=== PATIENT | female | born 1995 | race Caucasian/White ===

== ENCOUNTER 2017-04-03 12:52 | Emergency (ER) | payer OTHER, SELFPAY ==
[~2017-04-03] VITALS: Ht 167.6 cm; Wt 82.2 kg
[2017-04-03] MEDS ORDERED: NYST10PW (13:07)
[2017-04-03] MEDS ORDERED: OXAY1TAB (13:07)
[2017-04-03] MEDS ORDERED: DOCQ100C (13:07)
[2017-04-03] MEDS ORDERED: CALC1TAB9 (13:07)
[2017-04-03] MEDS ORDERED: VITA500T (13:07)
[2017-04-03] MEDS ORDERED: ENOX30IN3 (13:07)
[2017-04-03] MEDS ORDERED: CYCL10TA (13:07)
[2017-04-03] MEDS ORDERED: GABA-282 (13:07)
[2017-04-03] MEDS ORDERED: VITA-122 (13:07)
[2017-04-03] MEDS ORDERED: IBUP-1022 PO (13:07)
[2017-04-03 15:34] LABS: BASO % 0.2 % (0.0-1.0); EOS # 0.3 K/mm3 (0.0-0.50); EOS % 2.9 % (0.0-3.0); LARGE UNSTAINED CELL # 0.2 K/mm3 (0.0-0.4); LARGE UNSTAINED CELL % 2.5 % (0.0-4.0); LYMPH # 2.1 K/mm3 (1.5-6.5); MEAN CORPUSCULAR HEMOGLOBIN 28.3 pg (27.0-33.0); MEAN CORPUSCULAR HGB CONC 31.4 g/dl (32.0-36.5); MEAN CORPUSCULAR VOLUME 90.1 fl (80.0-96.0); MONO # 0.6 K/mm3 (0.0-0.8); MONO % 6.2 % (0.0-5.0); NEUTROPHILS # 6.5 K/mm3 (1.8-7.7); NEUTROPHILS % 68.1 % (36.0-66.0); PLATELET COUNT, AUTOMATED 498 k/mm3 (150-450); RED CELL DISTRIBUTION WIDTH 15.3 % (11.5-14.5); WHITE BLOOD COUNT 9.5 K/mm3 (4.0-10.0)
[2017-04-03 15:52] LABS: ANION GAP 9 MEQ/L (8-16); BLOOD UREA NITROGEN 9 MG/DL (7-18); CALCIUM LEVEL 9.2 MG/DL (8.5-10.1); CARBON DIOXIDE LEVEL 26 MEQ/L (21-32); CHLORIDE LEVEL 103 MEQ/L (98-107); CREATININE FOR GFR 0.48 MG/DL (0.55-1.02); GLOMERULAR FILTRATION RATE > 60.0 (>60); GLUCOSE, FASTING 87 MG/DL (70-105); POTASSIUM SERUM 4.4 MEQ/L (3.5-5.1); SODIUM LEVEL 138 MEQ/L (136-145)
[2017-04-03 15:55] LABS: ERYTHROCYTE SEDIMENTATION RATE 51 mm/hr (0-20)
[2017-04-03] MEDS ORDERED: ISOVUE-370 76% 100ML VIAL (Q9967) As Ordered ONE (16:10)
[2017-04-03] MEDS: HYDROmorphone HCL 1 MG/ML SYRINGE (J1170) IV PRN ×2 (16:18→17:04)
[2017-04-03 17:03] VITALS: BP 124/65
--- NOTE | 2017-04-03 17:24 | REP ---
CT ABDOMEN AND PELVIS WITH CONTRAST: HISTORY: Wound drainage. CONTRAST: Isovue 370, 75 mL. There is no perfusion in the superior medial aspect of the right kidney consistent with ischemia. There are small areas of irregularity in the cortex of the right kidney consistent with scarring. The liver, gallbladder, pancreas, spleen, adrenal glands and left kidney are normal in appearance. Surgical clips are present in the mid left anterior abdomen. A small amount of edema is present in the subcutaneous tissue in the left mid anterior abdomen as well as in the mid anterior abdominal cavity. There is atrophy of the left rectus abdominis muscle. The visualized lungs are clear. IMPRESSION: 1. There is no perfusion in the superior medial aspect of the right kidney consistent with ischemic. There are small areas of scarring in the right kidney. 2. There is a small amount of edema in the mid anterior abdominal subcutaneous tissue as well as in the mid anterior abdominal cavity. Surgical clips are present in the mid left anterior subcutaneous tissue. CT PELVIS: There is moderate distention of the urinary bladder. The uterus is normal in appearance. There is no mass, adenopathy or free fluid. A small amount of edema is present in the mid left anterior subcutaneous tissue and mid left anterior abdominal cavity. IMPRESSION: 1. There is moderate distention of the urinary bladder. 2. There is a small amount of edema in the mid left anterior subcutaneous tissue and mid anterior abdominal cavity. Signed by Adrian Nieto MD 04/03/2017 06:53 P
[2017-04-03] MEDS ORDERED: HYDROmorphone HCL 1 MG/ML SYRINGE (J1170) IV PRN (17:30)
[2017-04-03] MEDS ORDERED: DOXY100C37 PO (17:44)
--- NOTE | 2017-04-03 17:50 | REP ---
CT RIGHT LOWER EXTREMITY WITH CONTRAST: HISTORY: Purulent drainage. An intramedullary sheila with graft material is present. There is a fracture of the femur at the junction of the proximal and middle thirds. A 3.4 cm area of decreased attenuation is present in the right posterolateral musculature. This most likely represents hematoma or possibly abscess. A wedge shaped area of fluid density is present in the mid anterior subcutaneous tissue representing edema and or fluid. There is enlargement of the mid anterior musculature consistent with edema and or hematoma. Stranding is present in the overlying subcutaneous tissue consistent with edema. IMPRESSION: 1. There is a fracture of the femur at the junction of the proximal and middle thirds. An intramedullary sheila is present. 2. There is enlargement of mid anterior musculature consistent with edema and or hematoma. A wedge shaped area of increased density consistent with edema or fluid is present in the mid anterior subcutaneous tissue. 3. There is a 3.4 cm area of decreased attenuation in the right posterolateral musculature representing a hematoma or fluid. Signed by Adrian Nieto MD 04/03/2017 06:54 P
== END 2017-04-03 18:32 | disposition home or self-care (01) ==
LOC: M ED 12:52
DX: Z51.89 Encounter for other specified aftercare (principal); Z87.891 Personal history of nicotine dependence; Z79.01 Long term (current) use of anticoagulants
CPT/HCPCS: 73701; 74177; 80048; 85025; 85652; 86140; 87040; 96374; 96376; 99283; J1170; Q9967

== ENCOUNTER → 2017-06-06 | Outpatient (CLI) | payer OTHER ==
[~2017-06-06] MED LIST: CALC1TAB9; CYCL10TA; DOCQ100C; DOXY100C37 PO; ENOX30IN3; GABA-282; IBUP-1022 PO; NYST10PW; OXAY1TAB; VITA-122; VITA500T
--- NOTE | 2017-06-06 14:24 | REP ---
ULTRASOUND ABDOMINAL WALL: Real-time sonographic evaluation of left abdominal wall performed at the site of wound drainage. Patient states that there has been resection of rectus abdominis muscle in March 2017. In this region of the left abdominal wall there is a complex fluid collection seen with a tract to the skin. This complex fluid collection measures 9.6 x 3.1 x 2.2 cm. This could represent a complex seroma or abscess. There are multiple internal septations within the complex fluid collection. Signed by Brad Lee MD 06/06/2017 02:46 P
== END ==
LOC: M RAD 13:16
PROVIDERS: ATTEND Family Medicine
DX: T81.89XD Other complications of procedures, not elsewhere classified, subsequent encounter (principal)

== ENCOUNTER 2017-06-12 07:21 | Outpatient (RCR) | payer OTHER | END 2017-07-03 | LOC: M PT 07:21 | DX: Z51.89 Encounter for other specified aftercare (principal); V89.2XXA Person injured in unspecified motor-vehicle accident, traffic, initial encounter; X58.XXXA Exposure to other specified factors, initial encounter; Y93.9 Activity, unspecified; Y92.9 Unspecified place or not applicable; Y99.8 Other external cause status | CPT/HCPCS: 97163 ==

== ENCOUNTER → 2018-04-25 | Outpatient (CLI) | payer OTHER | LOC: M RAD 09:28 | DX: S72.40 Unspecified fracture of lower end of femur (principal); X58.XXXD Exposure to other specified factors, subsequent encounter; Y92.9 Unspecified place or not applicable | CPT/HCPCS: 73552 ==

== ENCOUNTER 2018-05-15 21:05 | Inpatient (IN) | payer MEDICAID, OTHER ==
[2018-05-15] MEDS: LIDOCAINE 1% MDV 20ML VIAL SC (22:00)
[2018-05-15] MEDS: LORazepam 1 MG TAB PO (22:43)
[2018-05-15] MEDS: NICOTINE 21MG/24HR 1 EA TRANSDERMAL TD (22:45)
[2018-05-15 22:47] LABS: HEMATOCRIT 43.3 % (36.0-47.0); HEMOGLOBIN 14.3 g/dl (12.0-15.5); MEAN CORPUSCULAR HEMOGLOBIN 27.7 pg (27.0-33.0); MEAN CORPUSCULAR VOLUME 83.9 fl (80.0-96.0); PLATELET COUNT, AUTOMATED 414 10^3/uL (150-450); RED BLOOD COUNT 5.16 10^6/uL (4.00-5.40); RED CELL DISTRIBUTION WIDTH 15.2 % (11.5-14.5); WHITE BLOOD COUNT 11.8 10^3/uL (4.0-10.0)
[2018-05-15 22:54] LABS: CONTROL LINE HCG INT CTR LINE PRESENT; HCG, SERUM QUALITATIVE NEGATIVE (NEGATIVE)
[2018-05-15] MEDS: ADACEL/BOOSTRIX VACCINE (DIPHTH/PERTUSS/ACELL/TETANUS)0.5ML SYR (90715) IM (23:00)
[2018-05-15 23:12] LABS: ACETAMINOPHEN LEVEL < 2.0 UG/ML (10.0-30.0); ALBUMIN/GLOBULIN RATIO 1.03 (1.00-1.93); ALKALINE PHOSPHATASE 112 U/L (45-117); ALT/SGPT 108 U/L (12-78); ANION GAP 11 MEQ/L (8-16); AST/SGOT 51 U/L (7-37); BILIRUBIN,DIRECT < 0.1 MG/DL (0.0-0.2); BILIRUBIN,TOTAL 0.2 MG/DL (0.2-1.0); BLOOD UREA NITROGEN 8 MG/DL (7-18); CALCIUM LEVEL 8.8 MG/DL (8.5-10.1); CARBON DIOXIDE LEVEL 20 MEQ/L (21-32); CHLORIDE LEVEL 111 MEQ/L (98-107); CREATININE FOR GFR 0.61 MG/DL (0.55-1.30); ETHYL ALCOHOL (ETHANOL) 0.158 % (0.000-0.010); GLOMERULAR FILTRATION RATE > 60.0 (>60); GLUCOSE, FASTING 90 MG/DL (70-100); POTASSIUM SERUM 4.1 MEQ/L (3.5-5.1); SALICYLATE LEVEL 3.1 MG/DL (5.0-30.0); SODIUM LEVEL 142 MEQ/L (136-145); TOTAL PROTEIN 7.9 GM/DL (6.4-8.2)
[2018-05-15 23:31] LABS: AMPHETAMINES LEVEL URINE NEGATIVE (NEGATIVE); BARBITURATES URINE NEGATIVE (NEGATIVE); BENZODIAZEPINES URINE NEGATIVE (NEGATIVE); CANNABINOIDS URINE POSITIVE (NEGATIVE); COCAINE METABOLITE URINE NEGATIVE (NEGATIVE); METHADONE URINE NEGATIVE (NEGATIVE); OPIATES URINE NEGATIVE (NEGATIVE); PHENCYCLIDINE URINE NEGATIVE (NEGATIVE)
[2018-05-16] MEDS: THIAMINE 100 MG TAB PO ×2 (01:53→10:11)
[2018-05-16] MEDS ORDERED: ACETAMINOPHEN TAB 650MG DOSE (2X325MG) PO (02:00)
[2018-05-16] MEDS ORDERED: MOM 30ML SUSPENSION UDC PO (02:00)
[2018-05-16] MEDS ORDERED: MAALOX 30 ML SUSP *UDC PO (02:00)
[2018-05-16] MEDS ORDERED: LORazepam 2 MG TAB PO (02:00)
[2018-05-16] MEDS ORDERED: hydrOXYzine 50 MG TAB PO (03:45)
[2018-05-16] MEDS: MELOXICAM (MOBIC) 7.5 MG TAB PO (10:10)
[2018-05-16] MEDS: NICOTINE 21MG/24HR 1 EA TRANSDERMAL TD (10:10)
[2018-05-16] MEDS: FOLIC ACID 1 MG TAB PO (10:11)
[2018-05-16] MEDS: MULTIVITAMINS/MINERALS THERAP 1 TAB PO (10:11)
[2018-05-16] MEDS: VENLAFAXINE 25 MG TAB PO (10:11)
[2018-05-16] MEDS: GABAPENTIN 300 MG CAP PO ×2 (10:11→15:12)
[2018-05-16] MEDS: tiZANidine 4 MG TAB PO (15:11)
== END 2018-05-16 15:30 | disposition home or self-care (01) | DRG 775 ==
LOC: M ED INP 05-16 01:46 → M PSY 05-16 02:33 → M ED 21:05
DX: F10.14 Alcohol abuse with alcohol-induced mood disorder (principal); Z62.810 Personal history of physical and sexual abuse in childhood; Z91.5 Personal history of self-harm; F17.210 Nicotine dependence, cigarettes, uncomplicated; Z81.3 Family history of other psychoactive substance abuse and dependence; G89.29 Other chronic pain; Z87.81 Personal history of (healed) traumatic fracture; M87.26 Osteonecrosis due to previous trauma, tibia and fibula

== ENCOUNTER → 2018-06-20 | Outpatient (REF) | payer OTHER | LOC: M SFHCADAM 15:33 | DX: R30.0 Dysuria (principal) | CPT/HCPCS: 87086 ==

== ENCOUNTER 2018-07-06 21:57 | Emergency (ER) | payer OTHER ==
[2018-07-06] MEDS: BACLOFEN 10 MG TAB PO (22:39)
[2018-07-06] MEDS: PERCOCET 5MG/325MG TAB PO (22:40)
[2018-07-06] MEDS: OXYCODONE/APAP 5MG/325MG(BULK FOR ED) 1 TABLET PO (23:17)
== END 2018-07-06 23:19 | disposition home or self-care (01) ==
LOC: M ED 21:57
DX: S39.022A Laceration of muscle, fascia and tendon of lower back, initial encounter (principal); X58.XXXA Exposure to other specified factors, initial encounter; Y92.89 Other specified places as the place of occurrence of the external cause; F33.9 Major depressive disorder, recurrent, unspecified; F41.9 Anxiety disorder, unspecified; Z87.820 Personal history of traumatic brain injury; Z79.899 Other long term (current) drug therapy; Z88.0 Allergy status to penicillin; F17.210 Nicotine dependence, cigarettes, uncomplicated
CPT/HCPCS: 99283

== ENCOUNTER 2022-12-20 12:20 | Emergency (ER) | payer MEDICARE, OTHER ==
[~2022-12-20] VITALS: Ht 167.6 cm; Wt 113.5 kg
[~2022-12-20 12:20] MED LIST changes: +BACL10TA2 PO; +CYCL-707; -CYCL10TA; -DOCQ100C; +DOCQ100C5; +DOXY-443 PO; -DOXY100C37 PO; +GABA600T4 PO; +HYDR50TA70 PO; +MELA10CA PO; +MOBI4TAB PO; +NYST-15; -NYST10PW; +PERC5TAB12 PO; +TIZA10TA PO; +VENL100T PO; +VITA-243; -VITA500T
[2022-12-20] MEDS ORDERED: FOLI1TAB11 (12:29)
[2022-12-20] MEDS ORDERED: PREG150C (12:29)
[2022-12-20] MEDS ORDERED: METH2.5T48 (12:29)
[2022-12-20] MEDS ORDERED: CLIN-250 (12:29)
[2022-12-20] MEDS ORDERED: DULO1CAP6 (12:29)
[2022-12-20] MEDS ORDERED: HYDR200T3 (12:29)
[2022-12-20] MEDS ORDERED: PROP20TA72 (12:29)
[2022-12-20] MEDS ORDERED: NS 1,000 ML IV ONE (12:50)
[2022-12-20] MEDS ORDERED: CLINDAMYCIN 600 MG in IV 1 EA IV ONE (12:50)
[2022-12-20] MEDS ORDERED: ONDANSETRON 4MG 2ML VIAL IV ONE (13:30)
[2022-12-20] MEDS ORDERED: MORPHINE 4 MG/ML 1ML VIAL IV ONE (13:30)
[2022-12-20 13:39] LABS: BASO # 0.1 10^3/uL (0.0-0.2); BASO % 0.4 % (0.0-1.0); EOS # 0.2 10^3/uL (0.0-0.5); EOS % 1.6 % (0.0-3.0); HEMATOCRIT 42.2 % (36.0-47.0); HEMOGLOBIN 13.7 g/dl (12.0-15.5); LYMPH # 2.7 10^3/uL (1.5-5.0); LYMPH % 19.4 % (24.0-44.0); MEAN CORPUSCULAR HEMOGLOBIN 27.5 pg (27.0-33.0); MEAN CORPUSCULAR HGB CONC 32.5 g/dl (32.0-36.5); MEAN CORPUSCULAR VOLUME 84.6 fl (80.0-96.0); MONO # 1.2 10^3/uL (0.0-0.8); MONO % 8.8 % (2.0-8.0); NEUTROPHILS # 9.5 10^3/uL (1.5-8.5); NEUTROPHILS % 69.5 % (36.0-66.0); PLATELET COUNT, AUTOMATED 357 10^3/uL (150-450); RED BLOOD COUNT 4.99 10^6/uL (4.00-5.40); WHITE BLOOD COUNT 13.7 10^3/uL (4.0-10.0)
[2022-12-20] MEDS ORDERED: ISOVUE-370 76% 100ML VIAL As Ordered ONE (13:57)
[2022-12-20] MEDS ORDERED: AMPICILLIN SOD/SULBACTAM SOD 3 GM in D5W MINI-BAG PLUS 100 ML IV ONE (16:00)
[2022-12-20] MEDS ORDERED: KETOROLAC 30 MG/ML 1ML VIAL IV ONE (17:00)
[2022-12-20] MEDS ORDERED: KETO10TAB PO (17:48)
[2022-12-20] MEDS ORDERED: AMOX875T2 PO (17:48)
[2022-12-20 18:00] VITALS: BP 139/74
== END 2022-12-20 18:08 | disposition home or self-care (01) ==
LOC: M ED 12:20
DX: K04.7 Periapical abscess without sinus (principal); L03.211 Cellulitis of face; Z88.0 Allergy status to penicillin; Z79.899 Other long term (current) drug therapy
CPT/HCPCS: 70491; 80047; 84702; 85025; 86140; 87040; 96365; 96367; 96374; 99283; J0295; J1100; J1885; J2405; Q9967

== ENCOUNTER → 2025-04-28 | Outpatient (CLI) | payer MEDICARE ==
[~2025-04-28] MED LIST changes: +AMOX875T2 PO; +CLIN-250; +DOXY-441 PO; -DOXY-443 PO; +DULO1CAP6; +FOLI1TAB11; +GABA-1172; +GABA-1490 PO; -GABA-282; -GABA600T4 PO; +HYDR200T46; -IBUP-1022 PO; +IBUP600T42 PO; +KETO10TAB PO; +METH2.5T48; +PREG150C2; +PROP20TA72
== END ==
LOC: M RAD 10:20
PROVIDERS: ATTEND Pain Medicine Interventional Pain Medicine
DX: M54.16 Radiculopathy, lumbar region (principal)